=== PATIENT | female | born 1940 | race Caucasian/White ===

== ENCOUNTER 2021-09-01 13:33 | Inpatient (IN) | payer MEDICARE, MEDICAID ==
[~2021-09-01] VITALS: Ht 167.6 cm; Wt 46.7 kg
--- NOTE | 2021-09-01 13:33 | NUR ---
BIB RA FROM HOME, HEARD A SCREAM AND FOUND ON THE FLOOR 1 HR WHITEWASHER "VERY CONFUSED" PER EMT UPON ARRIVAL AND THEN "SNAPPED OUT OF IT". PT WAS A&OX2 UPON INITIAL ASSESSMENT AND THEN A&OX4 MINUTES LATER. PT HAD DIFFICULTY FORMING SENTENCES. STROKE ASSESSMENT WAS INITIATED AND COMPLETE BY DR TAYLOR AT BEDSIDE. IV ESTABLISH R AC 20G AND CONVERTED TO SALINE LOCK. LABS WERE DRAWN AND SENT. VITALS ARE WITHIN NORMAL LIMITS. BREATHING REGULAR AND UNLABORED. PT WAS ATTACHED TO MONITOR.
[2021-09-01 15:08] LABS: BASOPHILS # (AUTO) 0.1 K/uL (0.0-0.2); BASOPHILS % (AUTO) 0.6 % (0.0-2.0); EOSINOPHILS % (AUTO) 0.3 % (0.0-6.0); HEMATOCRIT 42 % (33-45); HEMOGLOBIN 14.3 g/dL (11.5-14.8); LYMPHOCYTES # (AUTO) 0.5 K/uL (0.8-4.8); LYMPHOCYTES % (AUTO) 4.7 % (20.0-44.0); MEAN CORPUSCULAR HGB CONC 34 g/dl (31.0-36.0); MEAN CORPUSCULAR VOLUME 88 fL (82-100); MONOCYTES # (AUTO) 0.4 K/uL (0.1-1.30); MONOCYTES % (AUTO) 3.7 % (2.0-12.0); NEUTROPHILS # (AUTO) 10.5 K/uL (1.8-8.9); NEUTROPHILS % (AUTO) 90.7 % (43.0-81.0); PLATELET COUNT (AUTO) 404 K/uL (150-450); RED BLOOD CELL COUNT(AUTO) 4.76 MIL/uL (4.0-5.2); WHITE BLOOD COUNT (AUTO) 11.5 K/uL (4.3-11.0)
--- NOTE | 2021-09-01 15:09 | NUR ---
X RAY AT BEDSIDE
--- NOTE | 2021-09-01 15:10 | NUR ---
CALLED [facility] [phone]
[2021-09-01] MEDS ORDERED: ASPI-1169 PO (15:21)
[2021-09-01] MEDS ORDERED: ALBU8.5H8 IH (15:21)
[2021-09-01] MEDS ORDERED: TRAZ-182 PO (15:21)
[2021-09-01] MEDS ORDERED: FERR325T27 PO (15:21)
[2021-09-01 15:29] LABS: CALCIUM, SERUM 9.2 mg/dL (8.5-10.1); CARBON DIOXIDE 27 mmol/L (21-32); CHLORIDE 102 mmol/L (98-107); CREATININE 0.9 mg/dL (0.6-1.3); GLUCOSE 215 mg/dL (74-106); POTASSIUM 3.6 mmol/L (3.5-5.1); SODIUM SERUM 136 mmol/L (136-145); UREA NITROGEN, BLOOD 24 mg/dL (7-18)
[2021-09-01 15:38] LABS: ALANINE AMINOTRANSFERASE 24 U/L (12-78); ALBUMIN 3.1 g/dL (3.4-5.0); ALKALINE PHOSPHATASE 110 U/L (46-116); ASPARTATE AMINOTRANSFERASE 24 U/L (15-37); BILIRUBIN,DIRECT 0.1 mg/dL (0.0-0.2); BILIRUBIN,TOTAL 0.6 mg/dL (0.2-1.0); TOTAL PROTEIN, SERUM 7.7 g/dL (6.4-8.2)
--- NOTE | 2021-09-01 15:39 | NUR ---
PT AT BEDSIDE
[2021-09-01] MEDS ORDERED: IV NS 0.9% 500 ML BAG IV ONE (16:30)
[2021-09-01] MEDS ORDERED: ACETAMINOPHEN ES 500 MG TABLET ONE (16:41)
[2021-09-01] MEDS ORDERED: Z GUARD REMEDY 2 OZ OINT TP PRN (17:30)
[2021-09-01] MEDS ORDERED: ACETAMINOPHEN 325 MG TABLET PO PRN (17:30)
[2021-09-01] MEDS ORDERED: MAG HYDROX/AL HYDROX/SIMETH 30 ML UDC PO PRN (17:30)
--- NOTE | 2021-09-01 19:39 | NUR ---
COVID SWAB COLLECTED AND SENT TO LAB
[2021-09-01] MEDS ORDERED: ACETAMINOPHEN 325 MG TABLET ONE (19:43)
--- NOTE | 2021-09-01 20:58 | NUR ---
ROOM GIVEN 328-1
--- NOTE | 2021-09-01 21:51 | NUR ---
REPORT GIVEN TO ANNALEE GARCIA
--- NOTE | 2021-09-01 21:55 | NUR ---
TELE/LIFE SCIENTISTS NOTES RECEIVED PT FROM [place] [facility]IA [employer] TO [id number] ACCOMPANIED BY INFECTION CONTROL NURSE. DX: SYNCOPE. PT REPORTS SHE FELL AT HOME. PT AWAKE, A/OX3 WITH FORGETFULNESS. PT ABLE TO AMBULATE BUT STATES THAT SHE FEELS UNSTEADY. SAFETY INSRUCTIONS REINFORCED AND TO USE CALL LIGHT AT ALL TIMES FOR ANY ASSISTANCE NEEDED. BED ALARM ON. PT VERBALIZED UNDERSTANDING. ON ROOM AIR, O2 SAT 97%. RESPIRATIONS EVEN/UNLABORED. IV SITE: R-AC G20 INTACT/PATENT/FLUSHES WELL. ORIENTED TO ROOM AND STAFF. BELONGINGS RECORDED. PT IN NO ACUTE DISTRESS. SAFETY MEASURES IN PLACE, BED IN LOWEST LOCKED POSITION, S/R UPX2, CALL LIGHT WITHIN REACH. WILL CONT TO MONITOR. Addendum: 09/01/21 at 2338 by TATIANA ADAMS RN CONNECTED TO TELE MONITOR, READING SR, HR 84.
--- NOTE | 2021-09-01 22:02 | NUR ---
PATIENT TRANSFERRED UNER ACLS
[2021-09-01] MEDS: IV NS 0.9% 1,000 ML IV PRN (22:35)
[2021-09-01] MEDS: TRAZODONE 50 MG TABLET PO SCH (22:36)
--- NOTE | 2021-09-01 23:24 | NUR ---
RN NOTE PT C/O PAIN TO L-ARM/L-SHOULDER AND BACK. PT REQUESTS FOR PAIN MED "STRONGER THAN TYLENOL" REPORTS PAIN LEVEL 8/10. ON-CALL MD/FIRE CLAIMS ADJUSTER MELISSA ZAMORA MADE AWARE WITH ORDERS FOR NORCO 1TAB PO Q6HR PRN AND FOR X-RAY OF L-SHOULDER IN AM TO R/O FRACTURE.
[2021-09-01 23:43] VITALS: BP 118/72
[2021-09-01] MEDS: HYDROCODONE/APAP 10/325MG TABLET PO PRN (23:53)
[2021-09-02 00:35] VITALS: BP 128/71
--- NOTE | 2021-09-02 07:05 | NUR ---
TELE/RN NOTE PT RESTING IN BED, EASILY AROUSABLE TO STIMULI. ABLE TO VERBALIZE NEEDS. NO C/O PAIN AT THIS TIME. PT SLEPT WELL DURING THE NIGHT. ONGOING IVF NS @75ML/HR. ZEENAT WELL. TELE MONITOR READING SR, HR 83 WITH OCCASIONAL PACs. NO ACUTE DISTRESS NOTED. SAFETY MEASURES MAINTAINED. ALL NEEDS ATTENDED TO.
[2021-09-02 07:09] LABS: BASOPHILS # (AUTO) 0.1 K/uL (0.0-0.2); BASOPHILS % (AUTO) 1.2 % (0.0-2.0); EOSINOPHILS % (AUTO) 2.4 % (0.0-6.0); HEMATOCRIT 36 % (33-45); HEMOGLOBIN 12.5 g/dL (11.5-14.8); LYMPHOCYTES # (AUTO) 1.5 K/uL (0.8-4.8); LYMPHOCYTES % (AUTO) 20.7 % (20.0-44.0); MEAN CORPUSCULAR HGB CONC 35 g/dl (31.0-36.0); MEAN CORPUSCULAR VOLUME 88 fL (82-100); MONOCYTES # (AUTO) 0.9 K/uL (0.1-1.30); MONOCYTES % (AUTO) 12.4 % (2.0-12.0); NEUTROPHILS # (AUTO) 4.5 K/uL (1.8-8.9); NEUTROPHILS % (AUTO) 63.3 % (43.0-81.0); PLATELET COUNT (AUTO) 329 K/uL (150-450); RED BLOOD CELL COUNT(AUTO) 4.08 MIL/uL (4.0-5.2); WHITE BLOOD COUNT (AUTO) 7.1 K/uL (4.3-11.0)
--- NOTE | 2021-09-02 07:30 | NUR ---
TELE/RN OPENING NOTE PT RESTING IN BED AND AWAKE. ABLE TO VERBALIZE NEEDS. NO C/O PAIN AT THIS TIME. NO SOB NO RESPIRATORY DISTRESS NOTED. SHE HAS ONGOING IVF NS @75ML/HR. TOLERATED WELL. TELE MONITOR READING SR, HR 77 . NO ACUTE DISTRESS NOTED. SAFETY MEASURES MAINTAINED. BED IN THE LOWEST POSITION AND LOCKED. SIDE RAILS UPX2. CALL LIGHT AND TABLE WITHIN REACH.WILL CONTINUE TO MONITOR.
[2021-09-02] MEDS: HYDROCODONE/APAP 10/325MG TABLET PO PRN ×2 (07:34→14:29)
[2021-09-02 07:46] LABS: CALCIUM, SERUM 8.8 mg/dL (8.5-10.1); CREATININE 0.8 mg/dL (0.6-1.3); MAGNESIUM 1.9 mg/dL (1.8-2.4); PHOSPHORUS 2.9 mg/dL (2.5-4.9)
[2021-09-02 08:00] VITALS: BP 91/53
[2021-09-02 12:00] VITALS: BP 95/60
[2021-09-02] MEDS ORDERED: GADOTERATE MEGLUMINE 5 MMOL/10 ML VIAL IV ONE (14:21)
[2021-09-02] MEDS: IV NS 0.9% 1,000 ML IV PRN (14:38)
[2021-09-02 16:00] VITALS: BP 103/57
--- NOTE | 2021-09-02 18:30 | NUR ---
TELE/RN CLOSING NOTE PT RESTING IN BED AND AWAKE. ABLE TO VERBALIZE NEEDS. NO C/O PAIN AT THIS TIME. NO SOB NO RESPIRATORY DISTRESS NOTED. SHE HAS ONGOING IVF NS @75ML/HR. TOLERATED WELL. TELE MONITOR READING SR, HR 78 . NO ACUTE DISTRESS NOTED. SAFETY MEASURES MAINTAINED. BED IN THE LOWEST POSITION AND LOCKED. SIDE RAILS UPX2. CALL LIGHT AND TABLE WITHIN REACH.WILL ENDORSE INCOMING SHIFT NURSE FOR SURY.
[2021-09-02 20:00] VITALS: BP 100/54
--- NOTE | 2021-09-02 20:00 | NUR ---
STONE TRIMMER NOTES RECEIVED ON BED,A/O X3,FORGETFUL,FALL RISK,SALINE LOCK RIGHT AC INTACT AND PATENT,NO BP ON LEFT ARM,HX LEFT BREAST CA.CALL LIGHT IN REACH,NEEDS ANTICIPATED.
[2021-09-02] MEDS: TRAZODONE 50 MG TABLET PO SCH (21:16)
[2021-09-03 01:03] VITALS: BP 100/54
[2021-09-03 04:00] VITALS: BP_SYST 103; BP_SYST 105; BP_DIAS 52; BP_DIAS 53
[2021-09-03 07:07] LABS: CANCER AG, 15-3 10.4 U/mL (0.0-25.0)
--- NOTE | 2021-09-03 07:23 | NUR ---
ELEMENTARY READING SPECIALIST NOTES SB-56 ON TELE MONITOR,ALERT,ORIENTED X4,GOING FOR MRI TSPINE WITH CONTRAST BY DR COSME,CONSENT SIGNED.ENDORSED TO URIEL MANTILLA FOR SURY.
--- NOTE | 2021-09-03 07:30 | NUR ---
TELE/RN OPENING NOTE PT RESTING IN BED AND AWAKE. ABLE TO VERBALIZE NEEDS. NO C/O PAIN AT THIS TIME. NO SOB NO RESPIRATORY DISTRESS NOTED. IV ACCESS ON THE RIGHT AC #20 INTACT.SHE HAS ONGOING IVF NS @75ML/HR. TOLERATED WELL. TELE MONITOR READING SR, HR 63 . NO ACUTE DISTRESS NOTED. SAFETY MEASURES MAINTAINED. BED IN THE LOWEST POSITION AND LOCKED. SIDE RAILS UPX2. CALL LIGHT AND TABLE WITHIN REACH.WILL CONTINUE TO MONITOR.
[2021-09-03] MEDS ORDERED: IV NS 0.9% 250 ML IV ONE (08:08)
[2021-09-03] MEDS ORDERED: IOHEXOL-300 100 ML VIAL IV ONE (08:08)
[2021-09-03 08:16] VITALS: BP 118/67
[2021-09-03 11:50] VITALS: BP 122/69
[2021-09-03] MEDS: HYDROCODONE/APAP 10/325MG TABLET PO PRN ×2 (14:17→21:38)
[2021-09-03] MEDS: IV NS 0.9% 1,000 ML IV PRN (14:41)
[2021-09-03 16:30] VITALS: BP 137/83
--- NOTE | 2021-09-03 19:00 | NUR ---
TELE/RN CLOSING NOTE PT RESTING IN BED AND AWAKE. ABLE TO VERBALIZE NEEDS. NO C/O PAIN AT THIS TIME. NO SOB NO RESPIRATORY DISTRESS NOTED. IV ACCESS ON THE RIGHT AC #20 INTACT.SHE HAS ONGOING IVF NS @75ML/HR. TOLERATED WELL. TELE MONITOR . NO ACUTE DISTRESS NOTED. SAFETY MEASURES MAINTAINED. BED IN THE LOWEST POSITION AND LOCKED. SIDE RAILS UPX2. CALL LIGHT AND TABLE WITHIN REACH.WILL ENDORSE FOR SURY TO THE INCOMING SHIFT.
[2021-09-03] MEDS ORDERED: GADOTERATE MEGLUMINE 5 MMOL/10 ML VIAL IV ONE (19:06)
--- NOTE | 2021-09-03 19:30 | NUR ---
WEIGHT YARDAGE CHECKER OPENING NOTE RECEIVED PT AWAKE IN BED. A/O X3. ABLE TO VERBALIZE NEEDS. NO SOB OR S/S OF RESPIRATORY DISTRESS NOTED. IV ACCESS ON THE RIGHT AC #20 INFILTRATED. HELD IVF AND WILL REPLACE WITH NEW SALINE LOCK. ON EXTERNAL ACCOUNTS RECEIVABLE COLLECTOR READING SR, HR 63. SAFETY MEASURES MAINTAINED. BED IN LOWEST LOCKED POSITION, HOB ELEVATED, SIDE RAILS UPX2, CALL LIGHT AND TABLE WITHIN REACH. WILL CONTINUE TO MONITOR.
[2021-09-03 20:00] VITALS: BP 117/72
[2021-09-03] MEDS: TRAZODONE 50 MG TABLET PO SCH ×2 (21:26→21:35)
--- NOTE | 2021-09-03 21:38 | NUR ---
RN NOTE PT COMPLAINED OF 8/10 ACHING PAIN OF LEFT SHOULDER. ADMINISTERED NORCO 10-325 MG PRN FOR PAIN. VSS. WILL CONTINUE TO MONITOR.
[2021-09-04] VITALS: BP_SYST 132; BP_DIAS 75; BP_DIAS 88
[2021-09-04 04:00] VITALS: BP 135/67
[2021-09-04] MEDS: HYDROCODONE/APAP 10/325MG TABLET PO PRN ×2 (06:30→15:07)
--- NOTE | 2021-09-04 06:30 | NUR ---
RN NOTE PT COMPLAINED OF 7/10 ACHING PAIN OF LEFT SHOULDER. ADMINISTERED NORCO 10-325 MG PRN FOR PAIN. VSS. WILL CONTINUE TO MONITOR.
--- NOTE | 2021-09-04 06:37 | NUR ---
NETWORK CONTROL OPERATOR CLOSING NOTE PT AWAKE IN BED. A/O X3. ABLE TO VERBALIZE NEEDS. NO SOB OR S/S OF RESPIRATORY DISTRESS NOTED. IV ACCESS ON THE RIGHT FOREARM #22 RUNNING NS @ 75 ML/HR, INTACT AND PATENT. ON EXTERNAL SEAM SEWER READING SR, HR 76. ALL NEEDS MET AT THIS TIME. SAFETY MEASURES MAINTAINED AT ALL TIMES. BED IN LOWEST LOCKED POSITION, HOB ELEVATED, SIDE RAILS UPX2, CALL LIGHT AND TABLE WITHIN REACH. WILL ENDORSE TO ONCOMING NURSE FOR SURY.
[2021-09-04 07:34] LABS: BASOPHILS # (AUTO) 0.1 K/uL (0.0-0.2); BASOPHILS % (AUTO) 0.7 % (0.0-2.0); EOSINOPHILS % (AUTO) 3.4 % (0.0-6.0); HEMATOCRIT 39 % (33-45); HEMOGLOBIN 13.3 g/dL (11.5-14.8); LYMPHOCYTES # (AUTO) 1.5 K/uL (0.8-4.8); LYMPHOCYTES % (AUTO) 19.7 % (20.0-44.0); MEAN CORPUSCULAR HGB CONC 34 g/dl (31.0-36.0); MEAN CORPUSCULAR VOLUME 88 fL (82-100); MONOCYTES # (AUTO) 0.8 K/uL (0.1-1.30); MONOCYTES % (AUTO) 9.9 % (2.0-12.0); NEUTROPHILS # (AUTO) 5.1 K/uL (1.8-8.9); NEUTROPHILS % (AUTO) 66.3 % (43.0-81.0); PLATELET COUNT (AUTO) 322 K/uL (150-450); RED BLOOD CELL COUNT(AUTO) 4.41 MIL/uL (4.0-5.2); WHITE BLOOD COUNT (AUTO) 7.6 K/uL (4.3-11.0)
[2021-09-04 07:51] LABS: CALCIUM, SERUM 8.3 mg/dL (8.5-10.1); CREATININE 0.6 mg/dL (0.6-1.3); MAGNESIUM 1.8 mg/dL (1.8-2.4); POTASSIUM 3.7 mmol/L (3.5-5.1)
[2021-09-04 08:11] VITALS: BP 114/70
--- NOTE | 2021-09-04 08:45 | NUR ---
tele fine craft artist: pulmo f/u dr. elizabeth at bedside and scheduled pt for Bronchoscopy on tuesday and npo tuesday at 0600. orders carried out and acknowledged. pt verbalized understanding. will continue to monitor.
[2021-09-04] MEDS: LEVETIRACETAM (250 MG) 250 MG TABLET PO SCH ×2 (08:53→22:33)
--- NOTE | 2021-09-04 09:10 | NUR ---
tele telescope operator: notes consent obtained for Bronchoscopy from pt. pt verbalized understanding. will continue to monitor.
--- NOTE | 2021-09-04 09:15 | NUR ---
tele farm reporter: pulmo dr. elizabeth came back and explained to the pt re: ct guided core biopsy of left upper lobe mass on tuesday. consent signed by pt and verbalized understanding. dr. elizabeth says that he already spoken to the radiology department to do the ct guided core biopsy of left upper lobe mass on tuesday.
--- NOTE | 2021-09-04 12:00 | NUR ---
tele service counter cashier: notes having lunch, visitor at bedside. will continue to monitor.
[2021-09-04 12:05] VITALS: BP 107/71
--- NOTE | 2021-09-04 15:00 | NUR ---
tele it quality analyst: notes resting comfortable in bed with no distress noted. call light within reach.
[2021-09-04 16:17] VITALS: BP 111/66
--- NOTE | 2021-09-04 19:15 | NUR ---
tele practical nurse clinical coordinator: notes bedside report given to osiel (jace) for continuity of care.
--- NOTE | 2021-09-04 19:25 | NUR ---
FUR STRETCHER OPENING NOTE PATIENT RECEIVED AWAKE IN HER BED. A/OX4. PATIENT IS VERY PLEASANT. NO S/S OF DISTRESS, BREATHING SYMMETRICAL. IV RFA 22G. SAFETY MEASURES INPLACE: BED DOWN AT LOWEST POSITION, RAILS UP X2, CALL VASQUEZ WITHIN REACH. WILL CONTINUE TO MONITOR PATIENT.
[2021-09-04 20:00] VITALS: BP 115/71
[2021-09-04] MEDS: ONDANSETRON HCL/PF 4 MG/2 ML VIAL IVP PRN (21:41)
[2021-09-04] MEDS: TRAZODONE 50 MG TABLET PO SCH (22:00)
--- NOTE | 2021-09-04 22:34 | NUR ---
REHABILITATION ENGINEER NOTE PATIENT WAS OBSERVED SITTING UP IN HER BED VOMITING LIQUID. LIQUID WAS YELLOW (BILE). MINIMAL EMESIS. THIS WAS DURING THE DUE TIME OF HER EVENING KEPRA. I HELD THE KEPRA THE PATIENT WOULD HAVE JUST VOMITED THE PILLS RIGHT AFTERWARD. PATIENT'S MED ORDER ALLOWS FOR ZOFRAN. ZOFRAN WAS ADMINISTERED AND F/U TO REASSESS. PATIENT STATED SHE FELT BETTER AND STATED SHE FELT ABLE TO CONSUME LIQUIDS AND THE EVENING DOSE OF KEPRA WHICH WAS SUBSEQUENTLY ADMINISTERED. FOLLOWING PATIENT'S EMETIC EPISODE I ASSESSED HER. SHE REMAINED A/OX4. I STAYED AT BEDSIDE WITH THE PATIENT HAVING GIVEN HER A SHAFFER TUB FOR THE EMESIS AT THE TIME. UPON REASSESSMENT ADDITIONAL ITEMS WERE GIVEN TO HER WELL LETTING HER KNOW THAT FLUIDS WOULD BE PROVIDED PER HER REQUEST. SHE IS CURRENTLY ON IVF.
[2021-09-05] VITALS: BP 116/76
[2021-09-05] MEDS: HYDROCODONE/APAP 10/325MG TABLET PO PRN ×3 (02:24→22:47)
[2021-09-05 04:00] VITALS: BP 114/64
--- NOTE | 2021-09-05 06:37 | NUR ---
TELE CLOSING NOTE PATIENT IS AWAKE IN BED. A/OX4. NO S/S OF DISTRESS, BREATHING UNLABORED. ATHLETIC COACH REPORTS SR 73 AT PRESENT. SAFETY MEASURES IN PLACE: BED AT LOWEST POSITION, RAILS UP X2, CALL VASQUEZ WITHIN REACH. WILL ENDORSE TO THE NEXT SHIFT FOR SURY.
--- NOTE | 2021-09-05 06:44 | NUR ---
FOOD SERVICE DRIVER NOTE NOTIFIED DR. ZAMORA REGARDING PATIENT'S VTE SCORE OF 5 AND HAVING NO CHEMICAL PROPHYLAXIS. PATIENT IS ABLE TO AMBULATE AND MD WAS INFORMED WELL INFORMED OF MOST RECENT LABS. PER MD, NO CHEM PROPHYLAXIS TO BE ORDERED AT THIS TIME.
[2021-09-05 08:00] VITALS: BP 138/74
--- NOTE | 2021-09-05 08:01 | NUR ---
RN OPENING NOTES PATIENT IS IN BED RESTING, AWAKE. A/O X4. NO S/S OF PAIN NOTES AT THIS TIME. ON ROOM AIR, NO DISTRESS OR SHORTNESS OF BREATH NOTES. IV RFA #22G INTACT AND PATENT. PATIENT HAS A EXTERNAL ACCOUNTING SOFTWARE SPECIALIST WITH CURRENT READING OF S.R. AND HR OF 73. FALL AND SAFETY MEASURES IN PLACE, BED ALARM ON, BED IN LOW AND LOCK POSITION, CALL LIGHT AND TABLE WITHIN EASY REACH, SIDE RAILS UP X2. WILL CONTINUE TO MONITOR.
[2021-09-05] MEDS: LEVETIRACETAM (250 MG) 250 MG TABLET PO SCH ×2 (09:03→21:40)
[2021-09-05 12:00] VITALS: BP 121/74
[2021-09-05] MEDS: ONDANSETRON HCL/PF 4 MG/2 ML VIAL IVP PRN (13:03)
[2021-09-05 16:00] VITALS: BP 118/71
--- NOTE | 2021-09-05 19:05 | NUR ---
RN NOTES: -RECEIVED AWAKE ON BED, FAMILY MEMBER PRESENT AT BED SIDE, PATIENT IS A/OX4, ORIENTED TO UNIT AND STAFF, CONTINENT BOTH B/B, AMBULATORY, IV CANNULA ON THE RFA G#22 PATENT, NO COMPLAINTS OF N/V, NO PAIN OR DISCOMFORT UPON CHANGE OF SHIFT. -FALL SAFETY AND ASPIRATION PRECAUTION OBSERVED.
--- NOTE | 2021-09-05 19:27 | NUR ---
RN CLOSING NOTES PATIENT IS IN BED RESTING, AWAKE. A/O X4. NO S/S OF PAIN NOTES AT THIS TIME. ON ROOM AIR, NO DISTRESS OR SHORTNESS OF BREATH NOTES. IV RFA #22G INTACT AND PATENT. PATIENT HAS A EXTERNAL HRIS SPECIALIST WITH CURRENT READING OF S.R. AND HR OF 70. FALL AND SAFETY MEASURES IN PLACE, BED ALARM ON, BED IN LOW AND LOCK POSITION, CALL LIGHT AND TABLE WITHIN EASY REACH, SIDE RAILS UP X2. WILL ENDORSE TO WELDER PLASMA ARC..
[2021-09-05 20:00] VITALS: BP 110/73
[2021-09-05] MEDS: TRAZODONE 50 MG TABLET PO SCH (21:41)
[2021-09-05] MEDS: MAGNESIUM HYDROXIDE 30 ML UDC PO PRN (22:11)
--- NOTE | 2021-09-05 22:29 | NUR ---
RN NOTES: AT 2200 AFTER RECEIVING HERDUE MEDS, SHE ASKED SOMETHING FOR BOWEL MOVEMENT, SHE VERBALIZED SHE DID NOT HAD BM FOR MORE THAN 2 DAYS, MOM PRN GIVEN PER PATIENT REQUEST.
--- NOTE | 2021-09-05 22:47 | NUR ---
RN NOTES: -ASKING FOR HER PAIN MEDICATION AFTER SHE WENT TO THE BATHROOM, SHE SAID SHE IS IN PAIN 10/10, SHE WANTS HER NORCO, GIVEN PER PATIENT REQUEST, NON PHARMACOLOGIC INTERVENTION RENDERED.KEPT CALL LIGHT WITHIN EASY EACH
[2021-09-06] VITALS: BP 120/69
--- NOTE | 2021-09-06 02:48 | NUR ---
RN NOTES: ABLE TO SLEEP AND REST, KEPT CALL LIGHT WITH IN EASY REACH.
--- NOTE | 2021-09-06 06:43 | NUR ---
RN NOTES: ASLEEP, ABLE TO SLEEP WELL, NEEDS ATTENDED, FOR LABS THIS MORNING,ENDORSED FOR CONTINUITY OF CARE, FOR CT GUIDED NEEDLE BIOPSY OF LEFT UPPER LOBE ON 09/07/21 AT 0800.
--- NOTE | 2021-09-06 07:30 | NUR ---
MS RN OPENING NOTES RECEIVED PATIENT IN BED RESTING, AWAKE. A/O X4. NO S/S OF PAIN NOTED AT THIS TIME. ON ROOM AIR TOLERATING WELL, NO DISTRESS OR SHORTNESS OF BREATH NOTES. IV RFA #22G INTACT AND PATENT. FALL AND SAFETY MEASURES IN PLACE, BED ALARM ON, BED IN LOW AND LOCKED POSITION, CALL LIGHT AND TABLE WITHIN EASY REACH, SIDE RAILS UP X2. WILL CONTINUE TO MONITOR ACCORDINGLY.
[2021-09-06 08:00] VITALS: BP 121/77
[2021-09-06] MEDS: HYDROCODONE/APAP 10/325MG TABLET PO PRN ×3 (08:08→23:25)
[2021-09-06] MEDS: LEVETIRACETAM (250 MG) 250 MG TABLET PO SCH ×2 (08:55→20:54)
[2021-09-06 09:00] VITALS: BP 121/77
[2021-09-06 16:00] VITALS: BP 106/66
[2021-09-06] MEDS: ONDANSETRON HCL/PF 4 MG/2 ML VIAL IVP PRN (17:29)
--- NOTE | 2021-09-06 18:44 | NUR ---
MS RN CLOSING NOTES PATIENT IN BED RESTING, AWAKE. A/O X4. NO S/S OF PAIN NOTED AT THIS TIME. ON ROOM AIR TOLERATING WELL, NO DISTRESS OR SHORTNESS OF BREATH NOTES. IV RFA #22G INTACT AND PATENT. NPO POST MIDNIGHT INSTRUCTED. FALL AND SAFETY MEASURES IN PLACE, BED ALARM ON, BED IN LOW AND LOCKED POSITION, CALL LIGHT AND TABLE WITHIN EASY REACH, SIDE RAILS UP X2. DUE MEDS GIVEN ORDERED, ALL NEEDS ATTENDED AND MET. WILL ENDORSED TO ONCOMING SHIFT FOR SURY.
--- NOTE | 2021-09-06 19:30 | NUR ---
MS RN OPENING NOTES RECEIVED PATIENT AWAKE IN BED. A/O X4. NO S/S OF PAIN NOTED AT THIS TIME. PT STABLE ON ROOM AIR. NO SOB OR S/S OF RESPIRATORY DISTRESS. IV ACCESS RFA #22G INTACT AND PATENT. SAFETY PRECAUTIONS IN PLACE. BED IN LOWEST LOCKED POSITION, HOB ELEVATED, SIDE RAILS UP X2, AND CALL LIGHT AND TABLE WITHIN REACH. WILL CONTINUE TO MONITOR.
[2021-09-06 20:49] VITALS: BP_SYST 117; BP_SYST 97; BP_SYST 99; BP_DIAS 64; BP_DIAS 70
[2021-09-06 20:54] VITALS: BP 117/64
[2021-09-06] MEDS: MAGNESIUM HYDROXIDE 30 ML UDC PO PRN (20:54)
--- NOTE | 2021-09-06 20:54 | NUR ---
RN NOTE MILK OF MAGNESIA GIVEN PRN FOR CONSTIPATION PER PATIENT REQUEST. VSS. WILL CONTINUE TO MONITOR.
[2021-09-06] MEDS: TRAZODONE 50 MG TABLET PO SCH (22:00)
--- NOTE | 2021-09-06 22:06 | NUR ---
RN NOTE PT REFUSED SCHEDULED TRAZODONE AT 2200. EXPLAINED RISKS AND BENEFITS. PT STILL REFUSED. WILL CONTINUE TO MONITOR.
--- NOTE | 2021-09-06 23:25 | NUR ---
RN NOTE PT COMPLAINED OF 8/10 ACHING PAIN OF LEFT SHOULDER. ADMINISTERED NORCO 10-325 MG PRN FOR PAIN. VSS. WILL CONTINUE TO MONITOR.
--- NOTE | 2021-09-07 06:24 | NUR ---
MS RN CLOSING NOTES PATIENT AWAKE IN BED. A/O X4. NO S/S OF PAIN NOTED AT THIS TIME. PT STABLE ON ROOM AIR. NO SOB OR S/S OF RESPIRATORY DISTRESS. IV ACCESS RFA #22G INTACT AND PATENT. KEPT NPO AFTER MIDNIGHT FOR PROCEDURE TODAY. ALL NEEDS MET AT THIS TIME. SAFETY PRECAUTIONS IN PLACE AT ALL TIMES. BED IN LOWEST LOCKED POSITION, HOB ELEVATED, SIDE RAILS UP X2, AND CALL LIGHT AND TABLE WITHIN REACH. WILL ENDORSE TO ONCOMING NURSE FOR SURY.
[2021-09-07 07:03] LABS: CALCIUM, SERUM 8.8 mg/dL (8.5-10.1); CREATININE 0.8 mg/dL (0.6-1.3); POTASSIUM 4.7 mmol/L (3.5-5.1)
[2021-09-07 07:04] LABS: BASOPHILS # (AUTO) 0.1 K/uL (0.0-0.2); BASOPHILS % (AUTO) 0.8 % (0.0-2.0); EOSINOPHILS % (AUTO) 2.5 % (0.0-6.0); HEMATOCRIT 41 % (33-45); HEMOGLOBIN 14.2 g/dL (11.5-14.8); LYMPHOCYTES % (AUTO) 22.2 % (20.0-44.0); MEAN CORPUSCULAR HGB CONC 35 g/dl (31.0-36.0); MEAN CORPUSCULAR VOLUME 87 fL (82-100); MONOCYTES # (AUTO) 0.8 K/uL (0.1-1.30); MONOCYTES % (AUTO) 8.8 % (2.0-12.0); NEUTROPHILS # (AUTO) 5.8 K/uL (1.8-8.9); NEUTROPHILS % (AUTO) 65.7 % (43.0-81.0); PLATELET COUNT (AUTO) 418 K/uL (150-450); RED BLOOD CELL COUNT(AUTO) 4.66 MIL/uL (4.0-5.2); WHITE BLOOD COUNT (AUTO) 8.9 K/uL (4.3-11.0)
[2021-09-07 08:00] VITALS: BP 111/65
[2021-09-07] MEDS: LEVETIRACETAM (250 MG) 250 MG TABLET PO SCH ×2 (08:05→21:31)
--- NOTE | 2021-09-07 10:16 | NUR ---
MS RN OPENING NOTES PATIENT RECEIVED IN BED, AWAKEN, A/O X4, ABLE TO MAKE NEED KNOWN. PATIENT ON ROOM AIR; BREATHING EVEN AND UNLABORED, NO SOB NOTED AT THIS TIME. NO COMPLAINS OF PAIN. IV ACCESS AT RFA G #22 PRESENT AND INTACT. SAFETY PRECAUTIONS IN PLACE; BED IN LOW POSITION AND LOCKED, RAILS UP X2, CALL LIGHT WITHIN REACH. WILL CONTINUE TO MONITOR PATIENT.
--- NOTE | 2021-09-07 10:22 | NUR ---
WOUND CARE CONSULT: PT SEEN FOR BLANCHABLE REDNESS TO SACRUM. PT IS VERY THIN AND BONY. RECOMMENDATIONS MADE FOR SKIN PROTECTION. DISCUSSED WITH NURSING STAFF. IN AGREEMENT WITH PLAN OF CARE. Addendum: 09/07/21 at 1025 by SORIN RÍSO WNDNU PT NOTED TO HAVE LYMPHEDEMA OF LEFT UPPER EXTREMITY, PRESENT ON ADMISSION.
[2021-09-07] MEDS ORDERED: MIDAZOLAM HCL 5MG/ML VIAL 25 MG/5 ML VIAL IV ONE (13:00)
[2021-09-07] MEDS ORDERED: NALOXONE PREFILLED SYRINGE 2 MG/2 ML SYRINGE IV ONE (13:00)
[2021-09-07] MEDS ORDERED: FENTANYL PF 250MCG/5ML AMPUL IV ONE (13:00)
[2021-09-07] MEDS: HYDROCODONE/APAP 10/325MG TABLET PO PRN (15:01)
--- NOTE | 2021-09-07 15:01 | NUR ---
MS RN NOTES PATIENT BACK FROM BIOPSY. PER DR GIOVANNA LOU TO RESUME DIET.
[2021-09-07] MEDS ORDERED: LOPERAMIDE HCL (2 MG CAP) 2 MG CAPSULE PO ONE (15:30)
--- NOTE | 2021-09-07 18:49 | NUR ---
MS RN CLOSING NOTES PATIENT REMAINS IN BED, AWAKEN, A/O X4, ABLE TO MAKE NEED KNOWN. PATIENT ON ROOM AIR; BREATHING EVEN AND UNLABORED, NO SOB NOTED AT THIS TIME. NO COMPLAINS OF PAIN AT THE MOMENT. IV ACCESS AT RFA G #22 PRESENT AND INTACT; SL. ALL NEEDS ATTENDED DURING THE DAY. SAFETY PRECAUTIONS IN PLACE; BED IN LOW POSITION AND LOCKED, RAILS UP X2, CALL LIGHT WITHIN REACH. WILL ENDORSE TO LAWYER NURSE FOR SURY.
[2021-09-07 20:00] VITALS: BP 106/67
[2021-09-07] MEDS: TRAZODONE 50 MG TABLET PO SCH (22:00)
[2021-09-08] MEDS: HYDROCODONE/APAP 10/325MG TABLET PO PRN ×2 (01:22→08:31)
[2021-09-08 08:00] VITALS: BP 111/72
--- NOTE | 2021-09-08 08:02 | NUR ---
MS RN OPENING NOTES PATIENT IN BED, AWAKE, A/O X4, ABLE TO MAKE NEED KNOWN. PATIENT ON ROOM AIR; BREATHING EVEN AND UNLABORED, NO SOB NOTED AT THIS TIME. COMPLAINING OF PAIN. IV ACCESS AT RFA G #22 PRESENT AND INTACT; SL. SAFETY PRECAUTIONS IN PLACE; BED IN LOW POSITION AND LOCKED, RAILS UP X2, CALL LIGHT WITHIN REACH. WILL CONTINUE TO MONITOR PATIENT.
[2021-09-08] MEDS: LEVETIRACETAM (250 MG) 250 MG TABLET PO SCH (08:31)
[2021-09-08] MEDS ORDERED: LEVE500T9 PO (08:36)
[2021-09-08] MEDS ORDERED: HYDR-3980 PO (08:41)
[2021-09-08] MEDS ORDERED: LOPERAMIDE HCL (2 MG CAP) 2 MG CAPSULE PO PRN (10:00)
--- NOTE | 2021-09-08 12:24 | NUR ---
MS UTILIZATION REVIEW RN NOTES PATIENT DISCHARGED HOME IN MEDICALLY STABLE CONDITION. PATIENT A/O X4 ABLE TO MAKE NEEDS KNOWN. ALL DISCHARGE PAPERWORK DONE AND TEACHING PROVIDED REGARDING PHYSICIAN INSTRUCTIONS, MED PRESCRIPTION AND FOLLOW UP APPOINTMENTS; PATIENT VERBALIZED UNDERSTANDING. BELONGINGS ACCOUNTED FOR AND FORM SIGNED. PROVIDED PATIENT WITH CD. PHOTO TAKE. IV ACCESS REMOVED PRIOR TO PATIENT LEAVING THE FLOOR. ID BAND REMOVED WELL. PATIENT LEFT THE UNIT VIA WHEELCHAIR ACCOMPANIED BY HER AND RN AT 1215. LEFT THE HOSPITAL VIA PRIVATE CAR.
== END 2021-09-08 12:15 | disposition home or self-care (01) | DRG 180 ==
LOC: ER 13:36 → TRANSITION 18:10 → TELE 20:57 → MED 09-05 11:32
PROVIDERS: ADMIT Internal Medicine; ATTEND Family Medicine
PROC: 0BDG4ZX Extraction of Left Upper Lung Lobe, Percutaneous Endoscopic Approach, Diagnostic (ICD-10-PCS; principal; 2021-09-07)
DX: C34.12 Malignant neoplasm of upper lobe, left bronchus or lung (principal); E43 Unspecified severe protein-calorie malnutrition; N17.0 Acute kidney failure with tubular necrosis; N13.30 Unspecified hydronephrosis; Z68.1 Body mass index [BMI] 19.9 or less, adult; C79.51 Secondary malignant neoplasm of bone; M84.58XA Pathological fracture in neoplastic disease, other specified site, initial encounter for fracture; R56.9 Unspecified convulsions; Z79.82 Long term (current) use of aspirin; E86.0 Dehydration; J44.9 Chronic obstructive pulmonary disease, unspecified; Z85.3 Personal history of malignant neoplasm of breast; G89.29 Other chronic pain; Z92.21 Personal history of antineoplastic chemotherapy; Z92.3 Personal history of irradiation; Z20.822 Contact with and (suspected) exposure to COVID-19; R55 Syncope and collapse; M25.512 Pain in left shoulder; E88.09 Other disorders of plasma-protein metabolism, not elsewhere classified; Z71.6 Tobacco abuse counseling; G47.00 Insomnia, unspecified; F17.210 Nicotine dependence, cigarettes, uncomplicated
CPT/HCPCS: 36415; 70450-TC; 70553-TC; 71045-TC; 71250-TC; 71260-TC; 72157-TC; 73030-TC; 76942-TC; 80048-TC; 80076-TC; 82105; 82378; 82550-TC; 83615-TC; 83735-TC; 84100-TC; 84484-TC; 85025-TC; 85610-TC; 85730-TC; 86300; 87081-TC; 88305-TC; 88333-TC; 88341; 88342; 93307-TC; A9575; G0378; J2250; J2310; J2405; J3010; J7030; J7040; J7050; Q9967

== ENCOUNTER 2021-10-20 11:14 | Outpatient (CLI) | payer MEDICARE, MEDICAID ==
[~2021-10-20 11:14] MED LIST: ALBU8.5H8 IH; ASPI-1169 PO; FERR325T27 PO; HYDR-3980 PO; LEVE500T9 PO; TRAZ-182 PO
== END 2021-10-20 23:59 | disposition home or self-care (01) ==
LOC: ER 11:14
PROVIDERS: ATTEND Internal Medicine Hematology & Oncology
DX: Z45.2 Encounter for adjustment and management of vascular access device (principal); C34.12 Malignant neoplasm of upper lobe, left bronchus or lung

== ENCOUNTER 2021-12-11 12:03 | Inpatient (IN) | payer MEDICARE, BC ==
[~2021-12-11] VITALS: Ht 167.6 cm; Wt 48.5 kg
--- NOTE | 2021-12-11 12:17 | NUR ---
[id number] FR[facility] HOME, WITNESSED SEIZURE LIKE ACTIVITY BY . BG 146 PAINT FORMULATOR. THE PATIENT IS ALERT AND ORIENTED SO SELF. DENIES PAIN. IN ROOM AIR AND DENIES SOB. RESPIRATION REGULAR AND UNLABORED. THE PATIENT IS ATTACHED TO THE MONITOR. SIDE RAILS PADED. SEIZURE PRECAUTIONS TAKEN. WILL CONTINUE TO MONITOR THE PATIENT.
--- NOTE | 2021-12-11 12:19 | NUR ---
DR SUNSHINE AT THE BEDSIDE
[2021-12-11] MEDS ORDERED: LEVETIRACETAM (500MG) 500 MG in IV NS 0.9% 100 ML IV ONE ×2 (13:00→16:30)
[2021-12-11] MEDS ORDERED: IV NS 0.9% 500 ML BAG IV ONE (13:00)
[2021-12-11] MEDS ORDERED: LORAZEPAM INJ 2 MG/ML VIAL ONE (13:02)
[2021-12-11 13:10] LABS: BASOPHILS # (AUTO) 0.1 K/uL (0.0-0.2); BASOPHILS % (AUTO) 0.3 % (0.0-2.0); EOSINOPHILS % (AUTO) 0.4 % (0.0-6.0); HEMATOCRIT 31 % (33-45); HEMOGLOBIN 10.3 g/dL (11.5-14.8); LYMPHOCYTES # (AUTO) 0.5 K/uL (0.8-4.8); LYMPHOCYTES % (AUTO) 2.9 % (20.0-44.0); MEAN CORPUSCULAR HGB CONC 33 g/dl (31.0-36.0); MEAN CORPUSCULAR VOLUME 89 fL (82-100); MONOCYTES # (AUTO) 0.3 K/uL (0.1-1.30); MONOCYTES % (AUTO) 1.7 % (2.0-12.0); NEUTROPHILS # (AUTO) 17.5 K/uL (1.8-8.9); NEUTROPHILS % (AUTO) 94.7 % (43.0-81.0); PLATELET COUNT (AUTO) 422 K/uL (150-450); WHITE BLOOD COUNT (AUTO) 18.5 K/uL (4.3-11.0)
[2021-12-11] MEDS ORDERED: LORAZEPAM INJ 2 MG/ML VIAL IV ONE (13:30)
--- NOTE | 2021-12-11 13:41 | NUR ---
THE PATIENT IS TAKEN TO CT VIA [facility]
--- NOTE | 2021-12-11 13:41 | NUR ---
URINE COLLECTED AND SENT TO THE LAB
--- NOTE | 2021-12-11 13:52 | NUR ---
THE PATIENT IS BACK FROM CT VIA [facility]
--- NOTE | 2021-12-11 13:53 | NUR ---
COVID ANTIGEN SWAB DONE AND SENT TO THE LAB
[2021-12-11 13:56] LABS: ALANINE AMINOTRANSFERASE 17 U/L (12-78); ALBUMIN 2.5 g/dL (3.4-5.0); ALCOHOL, BLOOD < 3 mg/dL (0-0); ALKALINE PHOSPHATASE 98 U/L (46-116); ASPARTATE AMINOTRANSFERASE 17 U/L (15-37); BILIRUBIN,DIRECT 0.1 mg/dL (0.0-0.2); BILIRUBIN,TOTAL 0.5 mg/dL (0.2-1.0); CALCIUM, SERUM 7.6 mg/dL (8.5-10.1); CARBON DIOXIDE 27 mmol/L (21-32); CHLORIDE 102 mmol/L (98-107); CREATININE 0.7 mg/dL (0.6-1.3); GLUCOSE 121 mg/dL (74-106); POTASSIUM 4.4 mmol/L (3.5-5.1); SODIUM SERUM 137 mmol/L (136-145); TOTAL PROTEIN, SERUM 5.9 g/dL (6.4-8.2); UREA NITROGEN, BLOOD 16 mg/dL (7-18)
[2021-12-11] MEDS ORDERED: HYDROCODONE/APAP 10/325MG TABLET PO PRN (15:30)
[2021-12-11] MEDS ORDERED: ALBUTEROL SULFATE 8 GM HFA.AER.AD IH PRN (15:30)
--- NOTE | 2021-12-11 15:44 | NUR ---
CALLED NURSING SUP REGARDING PT BED
--- NOTE | 2021-12-11 15:57 | NUR ---
ROOM 109
--- NOTE | 2021-12-11 16:20 | NUR ---
THE PATIENT IS SEEN BY DR COSME WITH AN ORDER TO DISCONTINUE KEPPRA 500 MG Q12HR PO. START NEW ORDER OF KEPPRA 500 MG IV ONCE AT 1630 AND KEPPRA 1000 MG Q12HR FIRST DOSE TO BE GIVEN TODAY AT 2100. THE ORDERS ARE READ BACK, VERIFIED. NOTED AND CARRIED OUT.
--- NOTE | 2021-12-11 16:31 | NUR ---
REPORT GIVEN TO NURSE BRAVO FOR SURY
--- NOTE | 2021-12-11 16:49 | NUR ---
WAITING FOR PHARMACY TO DELIVER KEPPRA DUE 1630. FOLLOW UP CALL TO PHARMACY IS DONE.
[2021-12-11] MEDS ORDERED: AZITHROMYCIN 500 MG in IV D5W 250 ML IV ONE (17:00)
[2021-12-11] MEDS ORDERED: CEFTRIAXONE 1 G in IV D5W 50 ML IV ONE (17:00)
--- NOTE | 2021-12-11 17:28 | NUR ---
THE PATIENT IS TRANSFERED [facility] ROOM 117-2 IN STABLE CONDITION AND VIA ACLS POLICY.
[2021-12-11] MEDS ORDERED: ONDANSETRON HCL/PF 4 MG/2 ML VIAL IVP PRN (18:00)
[2021-12-11] MEDS ORDERED: LORAZEPAM INJ 2 MG/ML VIAL IV PRN (18:00)
[2021-12-11] MEDS ORDERED: ACETAMINOPHEN 325 MG TABLET PO PRN (18:00)
[2021-12-11] MEDS ORDERED: HYDROCODONE/APAP 5/325MG TABLET PO PRN (18:00)
[2021-12-11] MEDS ORDERED: MAG HYDROX/AL HYDROX/SIMETH 30 ML UDC PO PRN (18:00)
[2021-12-11] MEDS ORDERED: Z GUARD REMEDY 4 OZ OINT TP PRN (18:00)
[2021-12-11] MEDS ORDERED: MAGNESIUM HYDROXIDE 30 ML UDC PO PRN (18:00)
--- NOTE | 2021-12-11 18:00 | NUR ---
RN ADMITTING NOTES ADMITTED THIS 81 Y/O FEMALE PATIENT FROM E.R TO UNIT @1730, VIA GURNEY, ACCOMPANIED BY ER NURSE RADHA, WITH ADMITTING DIAGNOSIS OF SEIZURE. ON O2 @ 2LPM VIA N/C SPO2 @ 94%, NO SOB NOTED. BREATHING EVEN AND UNLABORED. PLACED PATIENT ON LACING CUTTER. WITH IV ACCESS ON RIGHT HAND, #18G, INTACT AND PATENT. BODY ASSESSMENT DONE, SKIN GENERALLY INTACT. NOTED WITH NON-PITTING EDEMA ON LEFT ARM. SAFETY MEASURES PLCED, BED IN LOWEST LOCKED POSITION, SR UP X2, CALL LIGHT PLACED WITHIN EASY REACH. INITIAL HISTORY OBTAINED FROM [facility]LEY WHO'S AT BEDSIDE, SECONDARY TO PATIENT BEING SLEEPY, R/T ADMINISTRATION OF LORAZEPAM FOR SEIZURE. WILL CONTINUE TO MONITOR, V/S: 98.3, 87, 16, 121/75, 0/10.
--- NOTE | 2021-12-11 19:00 | NUR ---
RN NOTE REPORT RECEIVED FROM SHELLY MANTILLA, PATIENT IN BED, AO X 2, FAMILY AT BEDSIDE, PT APPEARS DROWSY, RESPONDS TO YES OR NO QUESTIONS, IN NO ACUTE DISTRESS AT THIS TIME. RESPIRATIONS UNLABORED, SATURATION AT 95% ON 2L VIA NC, SR ON THE MONITOR, HR IS 87. NOTED IV SITE AT R HAND 18G, PATENT AND FLUSHING WELL, NO S/S OF INFECTION OR INFILTRATION. SAFETY MEASURES AND SEIZURE PRECAUTIONS IMPLEMENTED. 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 PATIENT BED ALARM IS ON. HEAD OF BED ELEVATED. BED IS LOCKED, IN LOWEST POSITION AND SIDE RAILS UP. CALL LIGHT WITHIN REACH OF THE PATIENT. WILL CONTINUE TO MONITOR AND REASSESS FOR ANY CHANGES.
--- NOTE | 2021-12-11 19:50 | NUR ---
RN NOTE 1630 DOSE OF KEPPRA 500 MG IV NOT GIVEN PER SHELLY MANTILLA IT WAS NOT AVAILABLE EARLIER, PATIENT WAS ADMITTED TO UNIT AT 1730. TELEPHONE CALL TO PHARMACY TO VERIFY IF 1630 DOSE OF KEPPRA SHOULD STILL BE GIVEN, PER RAFFI, DO NOT ADMINISTER PATIENT IS GETTING ANOTHER DOSE AT 2100. CLERICAL SPECIALIST [place] MADE AWARE
[2021-12-11] MEDS: IV NS 0.9% 1,000 ML IV PRN (20:08)
[2021-12-11] MEDS ORDERED: LEVETIRACETAM (250 MG) 250 MG TABLET PO SCH ×2 (21:00)
[2021-12-11] MEDS ORDERED: LEVETIRACETAM (500MG) 1,000 MG in IV NS 0.9% 100 ML IV SCH (21:00)
[2021-12-11] MEDS: TRAZODONE 50 MG TABLET PO SCH (21:11)
[2021-12-11] MEDS: LEVETIRACETAM (500MG) 1,000 MG in IV NS 0.9% 100 ML IV SCH (21:11)
[2021-12-11 22:00] VITALS: BP 126/78
[2021-12-12] VITALS: BP 127/71
[2021-12-12 04:00] VITALS: BP 112/66
--- NOTE | 2021-12-12 06:53 | NUR ---
TEXT DR. BR. CAMP FOR MRI APPROVAL.
--- NOTE | 2021-12-12 07:30 | NUR ---
RN OPENING NOTE RECEIVED PATIENT IN BED, ASLEEP, EASILY AWAKEN BY VERBAL STIMULI. RESPONDS TO YES OR NO QUESTIONS, IN NO ACUTE DISTRESS AT THIS TIME. RESPIRATIONS UNLABORED, SATURATION AT 95% ON 2L VIA NC, SR ON THE MONITOR, HR IS 68. NOTED IV SITE AT R HAND 18G, PATENT AND FLUSHING WELL, RFA G#20 ONGOING NS AT 75 CC/HR, INFUSING WELL, NO S/SX OF INFILTRATION NOTED. SAFETY MEASURES AND SEIZURE PRECAUTIONS IMPLEMENTED. 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 PATIENT BED ALARM IS ON. HEAD OF BED ELEVATED. BED IS LOCKED, IN LOWEST POSITION AND SIDE RAILS UP. CALL LIGHT WITHIN REACH OF THE PATIENT. WILL CONTINUE TO MONITOR PATIENT ACCORDINGLY.
[2021-12-12 08:00] VITALS: BP 103/63
[2021-12-12 08:11] LABS: EOSINOPHILS % (AUTO) 0.2 % (0.0-6.0); HEMATOCRIT 36 % (33-45); HEMOGLOBIN 11.7 g/dL (11.5-14.8); LYMPHOCYTES # (AUTO) 0.7 K/uL (0.8-4.8); LYMPHOCYTES % (AUTO) 3.6 % (20.0-44.0); MEAN CORPUSCULAR HGB CONC 33 g/dl (31.0-36.0); MEAN CORPUSCULAR VOLUME 90 fL (82-100); MONOCYTES # (AUTO) 0.2 K/uL (0.1-1.30); MONOCYTES % (AUTO) 0.9 % (2.0-12.0); NEUTROPHILS % (AUTO) 95.3 % (43.0-81.0); PLATELET COUNT (AUTO) 416 K/uL (150-450); RED BLOOD CELL COUNT(AUTO) 3.96 MIL/uL (4.0-5.2)
[2021-12-12] MEDS: FERROUS SULFATE (325 MG) 325 MG/TAB TABLET PO SCH (08:14)
[2021-12-12] MEDS: ASPIRIN 81 MG TAB.CHEW PO SCH (08:14)
[2021-12-12] MEDS: LEVETIRACETAM (500MG) 1,000 MG in IV NS 0.9% 100 ML IV SCH ×2 (08:26→22:03)
[2021-12-12 08:56] LABS: CALCIUM, SERUM 6.9 mg/dL (8.5-10.1); CREATININE 0.6 mg/dL (0.6-1.3); MAGNESIUM 2.1 mg/dL (1.8-2.4); PHOSPHORUS 2.4 mg/dL (2.5-4.9); POTASSIUM 3.6 mmol/L (3.5-5.1)
--- NOTE | 2021-12-12 09:45 | NUR ---
RN NOTES TRIED FOLLOWING UP WITH MRI DEPARTMENT REGARDING THE MRI OF THE BRAIN W/WO CONTRAST, NO ANSWER. WILL KEEP FOLLOWING UP.
[2021-12-12] MEDS: IV NS 0.9% 1,000 ML IV PRN ×2 (09:56→23:40)
[2021-12-12] MEDS ORDERED: ZOSYN IVPB 3.375 G in IV D5W 50ml IV ONE (10:00)
--- NOTE | 2021-12-12 11:14 | NUR ---
RN NOTES TRIED FOLLOWING UP WITH MRI DEPARTMENT REGARDING THE MRI OF THE BRAIN W/WO CONTRAST, NO ANSWER. WILL KEEP FOLLOWING UP.
--- NOTE | 2021-12-12 12:07 | NUR ---
RN NOTES BLADDER SCAN DONE 113 ML, NO INTERVENTION NEEDED AT THIS TIME. Addendum: 12/12/21 at 1208 by FORREST URENA RN DISREGARD ABOVE DOCUMENTATION. WRONG PATIENT.
--- NOTE | 2021-12-12 12:55 | NUR ---
RN NOTES PATIENT WAS PICKED UP FOR MRI OF THE BRAIN W/WO CONTRAST. LEFT UNIT IN STABLE CONDITION.
--- NOTE | 2021-12-12 13:20 | NUR ---
RN NOTES PATIENT CAME BACK FROM MRI DEPARTMENT.
[2021-12-12] MEDS ORDERED: GADOTERATE MEGLUMINE 10 MMOL/20 ML VIAL IV ONE (14:40)
[2021-12-12] MEDS ORDERED: K PHOS NEUTRAL 250 MG TABLET PO ONE (15:30)
[2021-12-12] MEDS: PIPERACILLIN /TAZOBACTAM 3.375 G in IV D5W 100 ML IV SCH ×2 (15:32→23:58)
--- NOTE | 2021-12-12 18:43 | NUR ---
RN CLOSING NOTE PATIENT IN BED, ASLEEP, EASILY AWAKEN BY VERBAL STIMULI. AT BED SIDE. PATIENT IS IN IN NO ACUTE DISTRESS AT THIS TIME. RESPIRATIONS UNLABORED, WITH O2 AT 2L VIA NC, NOTED IV SITE AT R HAND 18G, PATENT AND FLUSHING WELL, RFA G#20 ONGOING NS AT 75 CC/HR, INFUSING WELL, NO S/SX OF INFILTRATION NOTED. SAFETY MEASURES AND SEIZURE PRECAUTIONS IN PLACE. PATIENT BED ALARM IS ON. HEAD OF BED ELEVATED. BED IS LOCKED, IN LOWEST POSITION AND SIDE RAILS UP. CALL LIGHT WITHIN REACH OF THE PATIENT. ALL NEEDS ATTENDED AND MET. DUE MEDS GIVEN ORDERED. WILL ENDORSE TO ONCOMING SHIFT FOR SURY.
--- NOTE | 2021-12-12 19:30 | NUR ---
RN NOTE RECEIVED PATIENT IN BED, AO X 2-3, AT BEDSIDE, PATIENT APPEARS MORE ALERT COMPARED TO YESTERDAY, IN NO ACUTE DISTRESS AT THIS TIME. RESPIRATIONS UNLABORED, SATURATION AT 95% ON 2L VIA NC, HR IS 74. NOTED IV SITE AT R HAND 18G AND RFA 20G, PATENT AND FLUSHING WELL, NO S/S OF INFECTION OR INFILTRATION WITH NS INFUSING AT 75 ML/HR. PATIENT ABLE TO CONSUME 80% OF DINNER. SAFETY MEASURES AND SEIZURE PRECAUTIONS MAINTAINED. 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 PATIENT BED ALARM IS ON. HEAD OF BED ELEVATED. BED IS LOCKED, IN LOWEST POSITION AND SIDE RAILS UP. CALL LIGHT WITHIN REACH OF THE PATIENT. WILL CONTINUE TO MONITOR AND REASSESS FOR ANY CHANGES.
[2021-12-12 20:00] VITALS: BP 100/56
[2021-12-12] MEDS: TRAZODONE 50 MG TABLET PO SCH (22:03)
[2021-12-13 04:00] VITALS: BP 126/74
[2021-12-13] MEDS: PIPERACILLIN /TAZOBACTAM 3.375 G in IV D5W 100 ML IV SCH ×2 (07:26→15:00)
[2021-12-13] MEDS: FERROUS SULFATE (325 MG) 325 MG/TAB TABLET PO SCH (08:10)
[2021-12-13] MEDS: ASPIRIN 81 MG TAB.CHEW PO SCH (08:10)
[2021-12-13] MEDS: LEVETIRACETAM (500MG) 1,000 MG in IV NS 0.9% 100 ML IV SCH (09:08)
--- NOTE | 2021-12-13 10:28 | NUR ---
RN OPENING NOTE RECEIVED PATIENT IN BED, AWAKE A/O 3. NO S/S OF ACUTE DISTRESS AT THIS TIME. RESPIRATIONS UNLABORED, SATURATION AT 95% ON 2L VIA NC. NOTED IV SITE AT R HAND 18G, PATENT AND FLUSHING WELL, RFA G#20 ONGOING NS AT 75 CC/HR, INFUSING WELL, NO S/SX OF INFILTRATION NOTED. SAFETY MEASURES AND SEIZURE PRECAUTIONS IMPLEMENTED. 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 PATIENT BED ALARM IS ON. HEAD OF BED ELEVATED. BED IS LOCKED, IN LOWEST POSITION AND SIDE RAILS UP. CALL LIGHT WITHIN REACH OF THE PATIENT. WILL CONTINUE TO MONITOR THROUGHOUT SHIFT.
[2021-12-13 12:00] VITALS: BP 109/60
[2021-12-13] MEDS ORDERED: K PHOS NEUTRAL 250 MG TABLET PO ONE ×2 (15:30→18:00)
--- NOTE | 2021-12-13 17:40 | NUR ---
RN NOTES RECEIVED ORDER TOO LATE. PHARM HAD TO RE-UPLOAD ORDER.
--- NOTE | 2021-12-13 18:48 | NUR ---
RN CLOSING NOTE PATIENT IN BED, AWAKE WITH AT BED SIDE. NO S/S OF ACUTE DISTRESS AT THIS TIME. RESPIRATIONS UNLABORED, WITH O2 AT 2L VIA NC, NOTED IV SITE AT R HAND 18G, PATENT AND FLUSHING WELL, RFA G#20 ONGOING NS AT 75 CC/HR, INFUSING WELL, NO S/SX OF INFILTRATION NOTED. SAFETY MEASURES AND SEIZURE PRECAUTIONS IN PLACE. PATIENT BED ALARM IS ON. HEAD OF BED ELEVATED. BED IS LOCKED, IN LOWEST POSITION AND SIDE RAILS UP. CALL LIGHT WITHIN REACH OF THE PATIENT. ALL NEEDS ATTENDED AND MET. DUE MEDS GIVEN ORDERED. WILL ENDORSE TO ONCOMING DRAWER IN [facility] NURSE FOR SURY.
--- NOTE | 2021-12-13 19:10 | NUR ---
RN NOTE RECEIVED PATIENT IN BED RESTING ALERT ORIENTED X2 VERBALLY RESPONSIVE ON 2L OXYGEN O2:95% IV SITE IS ON RIGHT FOREARM AND RIGHT HAND INTACT PATENT SAFETY MEASURE IMPLEMENT BED IN LOW POSITON AND LOCKED CALL LIGHT WITHIN REACH CONTINUE TO MONITOR.
[2021-12-13 20:00] VITALS: BP 117/74
[2021-12-13] MEDS: LEVETIRACETAM (250 MG) 250 MG TABLET PO SCH (20:19)
[2021-12-13] MEDS: TRAZODONE 50 MG TABLET PO SCH (21:54)
[2021-12-14] MEDS: PIPERACILLIN /TAZOBACTAM 3.375 G in IV D5W 100 ML IV SCH ×2 (00:06→07:18)
[2021-12-14 04:00] VITALS: BP 114/76
[2021-12-14 07:40] LABS: BASOPHILS % (AUTO) 0.5 % (0.0-2.0); EOSINOPHILS % (AUTO) 1.7 % (0.0-6.0); HEMATOCRIT 28 % (33-45); LYMPHOCYTES % (AUTO) 10.7 % (20.0-44.0); MEAN CORPUSCULAR HGB CONC 35 g/dl (31.0-36.0); MEAN CORPUSCULAR VOLUME 87 fL (82-100); MONOCYTES # (AUTO) 0.3 K/uL (0.1-1.30); MONOCYTES % (AUTO) 3.3 % (2.0-12.0); NEUTROPHILS # (AUTO) 7.7 K/uL (1.8-8.9); NEUTROPHILS % (AUTO) 83.8 % (43.0-81.0); PLATELET COUNT (AUTO) 430 K/uL (150-450); RED BLOOD CELL COUNT(AUTO) 3.29 MIL/uL (4.0-5.2); WHITE BLOOD COUNT (AUTO) 9.2 K/uL (4.3-11.0)
--- NOTE | 2021-12-14 07:46 | NUR ---
RN NOTE PATIENT REMAINS ALERT ORIENTED X2 VERBALLY RESPONSIVE NO SOB NOT ACUTE DISTRESS NOTED ALL DUE MEDS GIVEN MD ORDERED HEAD OF THE BED ELEVATED ALL THE TIME,KEPT CLEAN AND DRY ALL THE TIME ALL NEEDS MET ENDORSE NEXT SHIFT FOR CONTINUATION OF CARE.
--- NOTE | 2021-12-14 07:59 | NUR ---
RN OPENING NOTE RECEIVED PATIENT IN BED, AWAKE A/O 3. NO S/S OF ACUTE DISTRESS AT THIS TIME. RESPIRATIONS UNLABORED, SATURATION AT 95% ON 2L VIA NC. NOTED IV SITE AT R HAND 18G, PATENT AND FLUSHING WELL, RFA G#20 FLUSHING WELL, NO S/SX OF INFILTRATION NOTED. SAFETY MEASURES AND SEIZURE PRECAUTIONS IMPLEMENTED. 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 PATIENT BED ALARM IS ON. HEAD OF BED ELEVATED. BED IS LOCKED, IN LOWEST POSITION AND SIDE RAILS UP. CALL LIGHT WITHIN REACH OF THE PATIENT. WILL CONTINUE TO MONITOR THROUGHOUT SHIFT.
[2021-12-14 08:00] LABS: CALCIUM, SERUM 6.8 mg/dL (8.5-10.1); CARBON DIOXIDE 21 mmol/L (21-32); CHLORIDE 104 mmol/L (98-107); CREATININE 0.5 mg/dL (0.6-1.3); GLUCOSE 100 mg/dL (74-106); SODIUM SERUM 135 mmol/L (136-145); UREA NITROGEN, BLOOD 10 mg/dL (7-18)
[2021-12-14] MEDS: FERROUS SULFATE (325 MG) 325 MG/TAB TABLET PO SCH (08:20)
[2021-12-14] MEDS: LEVETIRACETAM (250 MG) 250 MG TABLET PO SCH (08:21)
[2021-12-14] MEDS: ASPIRIN 81 MG TAB.CHEW PO SCH (08:21)
[2021-12-14 08:27] LABS: POTASSIUM 2.5 mmol/L (3.5-5.1)
[2021-12-14] MEDS ORDERED: LEVE500T9 PO (08:48)
[2021-12-14] MEDS ORDERED: POTASSIUM CHLORIDE 20 MEQ TAB.PRT.SR PO ONE (09:00)
[2021-12-14 09:14] LABS: EOSINOPHILS % (MANUAL) 1 % (0-4); LYMPHOCYTES % (MANUAL) 8 % (16-48); MONOCYTES % (MANUAL) 7 % (0-11.0); NEUTROPHILS % (MANUAL) 84 (42-76)
[2021-12-14] MEDS ORDERED: POTASSIUM PHOSPHATE MM 15 MMOL in IV NS 0.9% 250 ML IV SCH (10:00)
[2021-12-14 12:00] VITALS: BP 121/71
--- NOTE | 2021-12-14 14:08 | NUR ---
RN NOTES PT POTASSIUM LEVEL IS 4.3, WILL GET PT READY FOR DISCHARGE.
--- NOTE | 2021-12-14 15:06 | NUR ---
DC NOTES PT DC'D TO HOME IN STABLE CONDITION. DC INSTRUCTIONS GIVEN AND EXPLAINEDTO PT. PT VERBALIZED UNDERSTANDING. ALL PAPERWORK SIGNED AND COMPLETED. ALL BELONGINGS SENT. IV ACCESS REMOVED WITH NO COMPLICATIONS. PT LEFT UNIT VIA WHEELCHAIR HAPPILY WITH .
[2021-12-14] MEDS ORDERED: K PHOS NEUTRAL 250 MG TABLET PO ONE (16:00)
== END 2021-12-14 15:20 | disposition home or self-care (01) | DRG 101 ==
LOC: ER 12:05 → TELE1 16:06 → MEDSG1 12-12 08:00
PROVIDERS: ADMIT Internal Medicine; ATTEND Internal Medicine
DX: R56.9 Unspecified convulsions (principal); E87.1 Hypo-osmolality and hyponatremia; C34.12 Malignant neoplasm of upper lobe, left bronchus or lung; E44.0 Moderate protein-calorie malnutrition; Z68.1 Body mass index [BMI] 19.9 or less, adult; D72.829 Elevated white blood cell count, unspecified; D64.9 Anemia, unspecified; E88.09 Other disorders of plasma-protein metabolism, not elsewhere classified; Z92.21 Personal history of antineoplastic chemotherapy; Z85.3 Personal history of malignant neoplasm of breast; Z92.3 Personal history of irradiation; Y92.009 Unspecified place in unspecified non-institutional (private) residence as the place of occurrence of the external cause; T50.995A Adverse effect of other drugs, medicaments and biological substances, initial encounter; Z87.891 Personal history of nicotine dependence; Z20.822 Contact with and (suspected) exposure to COVID-19
CPT/HCPCS: 36415; 70450-TC; 70553-TC; 71045-TC; 80048-TC; 80076-TC; 83735-TC; 84100-TC; 84132-TC; 85025-TC; 87040-TC; 87081-TC; A9575; G0378; G0480; J0456; J0696; J1953; J2060; J2543; J3490; J7030; J7040; J7050; J7060

== ENCOUNTER 2022-02-04 16:54 | Inpatient (IN) | payer MEDICARE, BC ==
[~2022-02-04] VITALS: Ht 170.2 cm; Wt 46.7 kg
[2022-02-04] MEDS ORDERED: IV NS 0.9% 1,000 ML BAG IV ONE (17:30)
--- NOTE | 2022-02-04 17:56 | NUR ---
Patient came in to the er " On Chemo treatment- last dose 1wk ago. Been feeling weak since No strength to stand up". On room air, breathing evenly and unlabored. Connected to the monitor and pulse ox. kept comfortable, will continue to monitor accordingly.
--- NOTE | 2022-02-04 18:04 | NUR ---
MOVE SHEET SUBMITTED.
[2022-02-04 18:18] LABS: BASOPHILS % (AUTO) 0.2 % (0.0-2.0); EOSINOPHILS % (AUTO) 0.3 % (0.0-6.0); HEMATOCRIT 30 % (33-45); HEMOGLOBIN 9.9 g/dL (11.5-14.8); LYMPHOCYTES # (AUTO) 1.2 K/uL (0.8-4.8); LYMPHOCYTES % (AUTO) 6.7 % (20.0-44.0); MEAN CORPUSCULAR HGB CONC 33 g/dl (31.0-36.0); MEAN CORPUSCULAR VOLUME 96 fL (82-100); MONOCYTES # (AUTO) 1.1 K/uL (0.1-1.30); MONOCYTES % (AUTO) 5.9 % (2.0-12.0); NEUTROPHILS # (AUTO) 15.5 K/uL (1.8-8.9); NEUTROPHILS % (AUTO) 86.9 % (43.0-81.0); PLATELET COUNT (AUTO) 191 K/uL (150-450); WHITE BLOOD COUNT (AUTO) 17.9 K/uL (4.3-11.0)
[2022-02-04 18:44] LABS: CALCIUM, SERUM 8.3 mg/dL (8.5-10.1); CARBON DIOXIDE 28 mmol/L (21-32); CHLORIDE 103 mmol/L (98-107); CREATININE 0.6 mg/dL (0.6-1.3); GLUCOSE 105 mg/dL (74-106); POTASSIUM 3.8 mmol/L (3.5-5.1); SODIUM SERUM 136 mmol/L (136-145); UREA NITROGEN, BLOOD 20 mg/dL (7-18)
[2022-02-04 18:48] LABS: THYROID STIMULATING HORMONE 3.884 uIU/mL (0.358-3.74)
[2022-02-04 18:49] LABS: SERUM AMMONIA 2 umol/L (11-32)
[2022-02-04 18:50] LABS: ALANINE AMINOTRANSFERASE 13 U/L (12-78); ALBUMIN 2.1 g/dL (3.4-5.0); ALKALINE PHOSPHATASE 123 U/L (46-116); ASPARTATE AMINOTRANSFERASE 16 U/L (15-37); BILIRUBIN,DIRECT 0.1 mg/dL (0.0-0.2); BILIRUBIN,TOTAL 0.3 mg/dL (0.2-1.0); TOTAL PROTEIN, SERUM 6.3 g/dL (6.4-8.2)
[2022-02-04 18:52] LABS: URIC ACID 2.9 mg/dL (2.6-7.2)
[2022-02-04 18:57] LABS: BILIRUBIN,URINE NEGATIVE (NEGATIVE); COLOR,URINE YELLOW (YELLOW); LEUKOCYTE ESTERASE ,URINE SMALL (NEGATIVE); NITRITE, URINE POSITIVE (NEGATIVE); PROTEIN,URINE 100 mg/dl (NEGATIVE); UGLUCOSE NEGATIVE (NEGATIVE); UROBILINOGEN,URINE 0.2 EU/dL (0.2)
--- NOTE | 2022-02-04 19:11 | NUR ---
covid swab collected and sent to lab.
[2022-02-04] MEDS ORDERED: CEFTRIAXONE 1GM BAG (ER ONLY) 1 GM/50 ML PIGGYBACK IV ONE (19:30)
--- NOTE | 2022-02-04 19:53 | NUR ---
EPIC PAGED PER DR CARRANZA.
[2022-02-04] MEDS ORDERED: CEFTRIAXONE 1GM BAG (ER ONLY) 50 ML IV ONE (20:22)
[2022-02-04 20:27] LABS: BACTERIA,URINE 3+ /HPF (None Seen); RBC,URINE 51-80 /HPF (0-2)
[2022-02-04] MEDS ORDERED: ONDANSETRON HCL/PF 4 MG/2 ML VIAL IVP PRN (20:30)
[2022-02-04] MEDS ORDERED: ACETAMINOPHEN 325 MG TABLET PO PRN (20:30)
[2022-02-04] MEDS: CEFEPIME 1 GM in IV D5W 50 ML IV SCH (20:30)
[2022-02-04 20:43] LABS: BAND % (MANUAL) 8 % (0.0-5.0); LYMPHOCYTES % (MANUAL) 10 % (16-48); MONOCYTES % (MANUAL) 5 % (0-11.0); NEUTROPHILS % (MANUAL) 76 (42-76); REACTIVE LYMPHOCYTES 1 % (0-0)
--- NOTE | 2022-02-04 21:01 | NUR ---
RECIEVED [facility] [id number]
--- NOTE | 2022-02-04 21:04 | NUR ---
PHILLY BUI ENTRY LEVEL SOFTWARE DEVELOPER AT PT'S BEDSIDE
--- NOTE | 2022-02-04 21:20 | NUR ---
REPORT GIVEN TO ISRRAEL Aceves RN FOR SURY
[2022-02-04 21:50] VITALS: BP 120/77
--- NOTE | 2022-02-04 21:50 | NUR ---
ADMISSION NOTES PT ARRIVED VIA GURNEY ACCOMPANIED BY RN AND EMT. AOx3, ABLE TO MAKE NEEDS KNOWN. ON RA AND TOLERATING WELL. NO SOB NOTED. NO S/SX OF RESPIRATORY DISTRESS NOTED. TELE MONITOR DETECTS SINUS RHYTHM WITH RATE OF 78. IV ACCESS IN RAC #18 G RUNNING NS @ 50 ML/HR. UNABLE TO ASSESS PATIENT'S BACK AND SACRUM FOR WOUNDS PATIENT REFUSED TO BE LAID FLAT. SAFETY PRECAUTIONS IN PLACE: BED IN LOWEST, LOCKED POSITION, SIDERAILS UPx2, AND BRAKES ON. TABLE AND CALL LIGHT WITHIN REACH. WILL CONTINUE TO MONITOR.
--- NOTE | 2022-02-04 21:53 | NUR ---
TRANSFERRING PT TO 311 VIA ACLS
[2022-02-04] MEDS ORDERED: VANCOMYCIN 1 GM VIAL ONE (22:30)
[2022-02-04] MEDS: VANCOMYCIN 0.75 GM in IV D5W 250 ML IV SCH (22:37)
[2022-02-04] MEDS: IV NS 0.9% 1,000 ML IV PRN (22:39)
[2022-02-05] VITALS: BP 109/80
[2022-02-05] MEDS ORDERED: ALBUTEROL FS 2.5 MG/3 ML VIAL.NEB NEB PRN (01:00)
[2022-02-05] MEDS: LEVETIRACETAM (250 MG) 250 MG TABLET PO SCH ×3 (01:04→20:09)
[2022-02-05] MEDS: HYDROCODONE/APAP 10/325MG TABLET PO PRN ×4 (01:04→23:57)
--- NOTE | 2022-02-05 01:05 | NUR ---
ADMINISTERED NORCO FOR PAIN PER MD ORDER. VS WNL. WILL CONTINUE TO MONITOR.
--- NOTE | 2022-02-05 02:41 | NUR ---
REQUESTED IVPB OF CEFEPIME. NONE PRESENT ON FLOOR PER CHARGE NURSE. REQUESTED FROM NURSING HAND FLESHER BUT NO CEFEPIME HAS ARRIVED. WILL FOLLOW UP.
[2022-02-05 04:00] VITALS: BP 119/69
[2022-02-05 04:03] LABS: BASOPHILS % (AUTO) 0.2 % (0.0-2.0); EOSINOPHILS % (AUTO) 0.7 % (0.0-6.0); HEMATOCRIT 25 % (33-45); HEMOGLOBIN 8.7 g/dL (11.5-14.8); LYMPHOCYTES # (AUTO) 1.1 K/uL (0.8-4.8); LYMPHOCYTES % (AUTO) 8.3 % (20.0-44.0); MEAN CORPUSCULAR HGB CONC 34 g/dl (31.0-36.0); MEAN CORPUSCULAR VOLUME 94 fL (82-100); MONOCYTES # (AUTO) 0.9 K/uL (0.1-1.30); MONOCYTES % (AUTO) 7.3 % (2.0-12.0); NEUTROPHILS # (AUTO) 10.7 K/uL (1.8-8.9); NEUTROPHILS % (AUTO) 83.5 % (43.0-81.0); PLATELET COUNT (AUTO) 176 K/uL (150-450); RED BLOOD CELL COUNT(AUTO) 2.69 MIL/uL (4.0-5.2); WHITE BLOOD COUNT (AUTO) 12.8 K/uL (4.3-11.0)
[2022-02-05 04:31] LABS: ALANINE AMINOTRANSFERASE 13 U/L (12-78); ALBUMIN 1.8 g/dL (3.4-5.0); ALKALINE PHOSPHATASE 102 U/L (46-116); ASPARTATE AMINOTRANSFERASE 15 U/L (15-37); BILIRUBIN,TOTAL 0.2 mg/dL (0.2-1.0); CALCIUM, SERUM 7.1 mg/dL (8.5-10.1); CARBON DIOXIDE 23 mmol/L (21-32); CHLORIDE 106 mmol/L (98-107); CREATININE 0.6 mg/dL (0.6-1.3); GLUCOSE 110 mg/dL (74-106); MAGNESIUM 1.6 mg/dL (1.8-2.4); PHOSPHORUS 2.7 mg/dL (2.5-4.9); POTASSIUM 3.8 mmol/L (3.5-5.1); SODIUM SERUM 137 mmol/L (136-145); TOTAL PROTEIN, SERUM 5.2 g/dL (6.4-8.2); UREA NITROGEN, BLOOD 16 mg/dL (7-18)
--- NOTE | 2022-02-05 04:54 | NUR ---
CRITICAL LAB RECEIVED CRITICAL LAB OF 56 FOR TROPONIN. ELEVATED FROM PREVIOUS TROPONIN OF 39. PATIENT DENIED CHEST PAIN. LET SUPPLIER SPECIALIST WILLIAM KNOW AND SHE SAID TO "CONTINUE TO MONITOR PATIENT".
--- NOTE | 2022-02-05 06:52 | NUR ---
RN CLOSING NOTES PT IN BED, ASLEEP, AWAKENS TO VERBAL STIMULI. AOx3, ABLE TO MAKE NEEDS KNOWN. ON RA AND TOLERATING WELL. NO SOB NOTED. NO S/SX OF RESPIRATORY DISTRESS NOTED. TELE MONITOR DETECTS SINUS RHYTHM WITH RATE OF 78. IV ACCESS IN RAC #18 G RUNNING NS @ 50 ML/HR. UNABLE TO ASSESS PATIENT'S BACK AND SACRUM FOR WOUNDS PATIENT REFUSED TO BE LAID FLAT. ALL ORDERS CARRIED OUT. ALL NEEDS MET. PT KEPT CLEAN AND DRY. TREATED PAIN ONCE DURING SHIFT. SAFETY PRECAUTIONS IN PLACE: BED IN LOWEST, LOCKED POSITION, SIDERAILS UPx2, AND BRAKES ON. TABLE AND CALL LIGHT WITHIN REACH. WILL ENDORSE TO ONCOMING SHIFT FOR SURY.
--- NOTE | 2022-02-05 07:58 | NUR ---
RN OPENING NOTE- PT IN BED, ASLEEP, EASILY AWAKENED, AOx3, ABLE TO MAKE NEEDS KNOWN. ON RA AND TOLERATING WELL. NO SOB NOTED. NO S/SX OF RESPIRATORY DISTRESS NOTED. TELE MONITOR DETECTS SINUS RHYTHM WITH RATE OF 76. IV ACCESS IN RAC #18 G RUNNING NS @ 50 ML/HR. PT KEPT CLEAN AND DRY SAFETY PRECAUTIONS IN PLACE: BED IN LOWEST, LOCKED POSITION, SIDERAILS UPx2, AND BRAKES ON. TABLE AND CALL LIGHT WITHIN REACH. MONITOR / ASSIST
[2022-02-05 08:00] VITALS: BP 157/76
[2022-02-05] MEDS: ENOXAPARIN SODIUM 40 MG/0.4 ML DISP.SYRIN SQ SCH (08:24)
[2022-02-05] MEDS: VANCOMYCIN 0.75 GM in IV D5W 250 ML IV SCH ×2 (08:27→21:35)
[2022-02-05] MEDS ORDERED: ASPIRIN 81 MG TAB.CHEW PO SCH ×2 (09:00)
[2022-02-05] MEDS ORDERED: FERROUS SULFATE (325 MG) 325 MG/TAB TABLET PO SCH (09:00)
[2022-02-05] MEDS ORDERED: PANTOPRAZOLE 40 MG VIAL IV SCH (09:00)
[2022-02-05] MEDS ORDERED: MAGNESIUM OXIDE 400 MG TABLET PO ONE (10:00)
[2022-02-05 11:33] LABS: BAND % (MANUAL) 2 % (0.0-5.0); LYMPHOCYTES % (MANUAL) 9 % (16-48); MONOCYTES % (MANUAL) 6 % (0-11.0); NEUTROPHILS % (MANUAL) 82 (42-76)
[2022-02-05 11:34] LABS: METAMYELOCYTES % 1 % (0-0)
[2022-02-05 16:00] VITALS: BP 132/82
[2022-02-05 17:02] LABS: THYROID STIMULATING HORMONE 4.005 uIU/mL (0.358-3.74)
[2022-02-05] MEDS: IV NS 0.9% 1,000 ML IV PRN (18:03)
[2022-02-05] MEDS: CEFEPIME 1 GM in IV D5W 50 ML IV SCH (20:09)
[2022-02-05 20:11] VITALS: BP 118/74
[2022-02-05] MEDS: TRAZODONE 50 MG TABLET PO SCH (21:34)
--- NOTE | 2022-02-05 23:35 | NUR ---
RN OPENING NOTES RECEIVED PT IN BED, AWAKE, AT BEDSIDE. AOx3, ABLE TO MAKE NEEDS KNOWN. ON RA AND TOLERATING WELL. NO SOB NOTED. NO S/SX OF RESPIRATORY DISTRESS NOTED. TELE MONITOR DETECTS SINUS RHYTHM WITH PACs AND RATE OF 78. IV ACCESS IN RAC #18 G RUNNING NS @ 50 ML/HR. SAFETY PRECAUTIONS IN PLACE: BED IN LOWEST, LOCKED POSITION, SIDERAILS UPx2, AND BRAKES ON. TABLE AND CALL LIGHT WITHIN REACH. WILL CONTINUE TO MONITOR. Addendum: 02/05/22 at 2336 by KIMBERLY HOGAN RN OPENING NOTES SHOULD BE AT 1930
--- NOTE | 2022-02-05 23:57 | NUR ---
ADMINISTERED NORCO FOR PAIN PER MD ORDER. VS WNL. WILL CONTINUE TO MONITOR.
[2022-02-06 00:12] VITALS: BP 137/80
[2022-02-06 04:28] VITALS: BP 137/80
[2022-02-06] MEDS: HYDROCODONE/APAP 10/325MG TABLET PO PRN (06:16)
--- NOTE | 2022-02-06 06:16 | NUR ---
ADMINISTERED NORCO FOR PAIN PER MD ORDER. VS WNL. WILL CONTINUE TO MONITOR.
[2022-02-06 06:46] LABS: BASOPHILS % (AUTO) 0.3 % (0.0-2.0); EOSINOPHILS % (AUTO) 0.8 % (0.0-6.0); HEMATOCRIT 29 % (33-45); HEMOGLOBIN 9.8 g/dL (11.5-14.8); LYMPHOCYTES # (AUTO) 0.9 K/uL (0.8-4.8); LYMPHOCYTES % (AUTO) 10.4 % (20.0-44.0); MEAN CORPUSCULAR HGB CONC 34 g/dl (31.0-36.0); MEAN CORPUSCULAR VOLUME 95 fL (82-100); MONOCYTES # (AUTO) 0.9 K/uL (0.1-1.30); MONOCYTES % (AUTO) 10.5 % (2.0-12.0); NEUTROPHILS # (AUTO) 6.6 K/uL (1.8-8.9); PLATELET COUNT (AUTO) 205 K/uL (150-450); RED BLOOD CELL COUNT(AUTO) 3.02 MIL/uL (4.0-5.2); WHITE BLOOD COUNT (AUTO) 8.5 K/uL (4.3-11.0)
--- NOTE | 2022-02-06 06:55 | NUR ---
RN CLOSING NOTES PT IN BED, LAYING ON LEFT SIDE, AWAKE. AOx3, ABLE TO MAKE NEEDS KNOWN. ON RA AND TOLERATING WELL. NO SOB NOTED. NO S/SX OF RESPIRATORY DISTRESS NOTED. TELE MONITOR DETECTS SINUS RHYTHM WITH PACs AND RATE OF 78. IV ACCESS IN RAC #18 G RUNNING NS @ 50 ML/HR. ALL ORDERS CARRIED OUT. ALL NEEDS MET. PT KEPT CLEAN AND DRY. SAFETY PRECAUTIONS IN PLACE: BED IN LOWEST, LOCKED POSITION, SIDERAILS UPx2, AND BRAKES ON. TABLE AND CALL LIGHT WITHIN REACH. WILL ENDORSE TO ONCOMING SHIFT FOR SURY.
[2022-02-06 07:05] LABS: CALCIUM, SERUM 7.3 mg/dL (8.5-10.1); CARBON DIOXIDE 24 mmol/L (21-32); CHLORIDE 105 mmol/L (98-107); CREATININE 0.6 mg/dL (0.6-1.3); GLUCOSE 92 mg/dL (74-106); MAGNESIUM 1.7 mg/dL (1.8-2.4); PHOSPHORUS 2.7 mg/dL (2.5-4.9); POTASSIUM 3.8 mmol/L (3.5-5.1); SODIUM SERUM 136 mmol/L (136-145); UREA NITROGEN, BLOOD 11 mg/dL (7-18)
[2022-02-06 07:10] LABS: THYROID STIMULATING HORMONE 2.427 uIU/mL (0.358-3.74)
[2022-02-06 08:00] VITALS: BP 99/66
[2022-02-06] MEDS: PANTOPRAZOLE 40 MG TABLET.DR PO SCH ×2 (08:16→09:36)
[2022-02-06] MEDS: Magnesium 1GM/D5W 100ML PREMIX 100 ML IV SCH ×2 (08:57→11:01)
[2022-02-06] MEDS: LEVETIRACETAM (250 MG) 250 MG TABLET PO SCH ×2 (09:36→21:15)
[2022-02-06] MEDS: ENOXAPARIN SODIUM 40 MG/0.4 ML DISP.SYRIN SQ SCH (09:37)
--- NOTE | 2022-02-06 10:45 | NUR ---
c/o pain,states no one has given her the oxy med from home since she has been here.rn checked home list med not on list.told her i would inform .
--- NOTE | 2022-02-06 11:10 | NUR ---
spouse here with oxy med bottle.reviewed use with leslee.now reed licensed club manager in to see pt. review of meds by
--- NOTE | 2022-02-06 11:50 | NUR ---
rn in to rm. to offer pain med to pt.states she took it out of her own bottle.spouse instructed to take bottle home.no more meds in bottle.pt. made awre not to be taking meds from home.pt. and spouse agreeable.
--- NOTE | 2022-02-06 12:12 | NUR ---
dr. crooks made aware pt. used own med supply.
[2022-02-06] MEDS ORDERED: IV NS 0.9% 250 ML IV ONE (12:19)
--- NOTE | 2022-02-06 14:58 | NUR ---
requesting pain med after ct scan,vs taken.
[2022-02-06] MEDS: oxyCODONE IR immediate release 5 MG PO PRN ×2 (15:11→19:59)
[2022-02-06 16:00] VITALS: BP 141/71
--- NOTE | 2022-02-06 17:13 | NUR ---
MEDICATED X 2 FOR PAIN WITH OXY-IR.
--- NOTE | 2022-02-06 19:45 | NUR ---
RN OPENING NOTE PATIENT IN BED, AWAKE. PATIENT IS A/O X 4, ABLE TO MAKE NEEDS KNOWN. PATIENT IS ON RA AT THIS TIME, 90% O2 SAT. PATIENT GIVEN 2 LPM, 95% NOW. PATIENT COMPLAINING OF 8/10 PAIN N THE LEFT SIDE BREAST. WILL GIVE PAIN MEDICATION APPROPRIATELY. PATIENT HAS A R AC 22 G PATENT AND INTACT, RUNNING NS AT 50 ML/HR. SAFETY MEASURES IN PLACE: BED LOCKED AND IN LOWEST POSITION, CALL LIGHT WITHIN REACH, SIDE RAILS UP. WILL MONITOR PATIENT CLOSELY.
[2022-02-06] MEDS: CEFEPIME 1 GM in IV D5W 50 ML IV SCH (19:55)
[2022-02-06 20:00] VITALS: BP 111/63
[2022-02-06] MEDS: IV NS 0.9% 1,000 ML IV PRN (20:33)
[2022-02-06] MEDS: TRAZODONE 50 MG TABLET PO SCH ×2 (21:15→21:21)
--- NOTE | 2022-02-06 22:00 | NUR ---
PATIENT REFUSED TRAZADONE Addendum: 02/06/22 at 2201 by ADELA AYALA RN STATES SHE DOES NOT NEED IT
[2022-02-07] MEDS: oxyCODONE IR immediate release 5 MG PO PRN ×4 (02:19→17:07)
--- NOTE | 2022-02-07 02:23 | NUR ---
PATIENT GIVEN OXY IR FOR SEVERE PAIN ON THE LEFT BREAST/CHEST
--- NOTE | 2022-02-07 06:43 | NUR ---
RN CLOSING NOTE PATIENT IN BED, AWAKE. PATIENT IS A/O X 4, ABLE TO MAKE NEEDS KNOWN. PATIENT IS ON 2LPM, TOLERATING WELL, NO SOB NOTED. BREATHING EVEN AND UNLABORED. PATIENT KEEPS TAKING OFF NASAL CANNULA, EDUCATION GIVEN REGARDING LOW O2. PATIENT STATES IT'S "ALWAYS LOW". PATIENT COMPLAINS OF PAIN ON L BREAST, MANAGED WITH OXY IR 15 MG. PATIENT HAS A R FA 22 G PATENT AND INTACT, RUNNING NS AT 50 ML/HR. GEORGE CATHETER DRAINING VIA GRAVITY. SAFETY MEASURES IN PLACE: BED LOCKED, CALL LIGHT WITHIN REACH, SIDE RAILS UP. PATIENT WANTS THE BED HIGH AT ALL TIMES. EDUCATED PATIENT ON SAFETY, BUT STILL REFUSES TO HAVE THE BED AT LOWEST POSITION. ALL NEEDS MET AND ATTENDED. ALL ORDERS CARRIED OUT. WILL ENDORSE TO DAY SHIFT NURSE FOR SURY.
[2022-02-07 06:56] LABS: CALCIUM, SERUM 7.2 mg/dL (8.5-10.1); CARBON DIOXIDE 24 mmol/L (21-32); CHLORIDE 103 mmol/L (98-107); CREATININE 0.5 mg/dL (0.6-1.3); GLUCOSE 98 mg/dL (74-106); MAGNESIUM 1.8 mg/dL (1.8-2.4); PHOSPHORUS 2.5 mg/dL (2.5-4.9); POTASSIUM 3.9 mmol/L (3.5-5.1); SODIUM SERUM 133 mmol/L (136-145); UREA NITROGEN, BLOOD 9 mg/dL (7-18)
[2022-02-07 07:11] LABS: BASOPHILS % (AUTO) 0.3 % (0.0-2.0); EOSINOPHILS % (AUTO) 0.5 % (0.0-6.0); HEMATOCRIT 27 % (33-45); HEMOGLOBIN 9.5 g/dL (11.5-14.8); LYMPHOCYTES # (AUTO) 0.9 K/uL (0.8-4.8); LYMPHOCYTES % (AUTO) 10.6 % (20.0-44.0); MEAN CORPUSCULAR HGB CONC 35 g/dl (31.0-36.0); MEAN CORPUSCULAR VOLUME 94 fL (82-100); MONOCYTES # (AUTO) 0.8 K/uL (0.1-1.30); MONOCYTES % (AUTO) 10.1 % (2.0-12.0); NEUTROPHILS # (AUTO) 6.4 K/uL (1.8-8.9); NEUTROPHILS % (AUTO) 78.5 % (43.0-81.0); PLATELET COUNT (AUTO) 235 K/uL (150-450); RED BLOOD CELL COUNT(AUTO) 2.86 MIL/uL (4.0-5.2); WHITE BLOOD COUNT (AUTO) 8.2 K/uL (4.3-11.0)
--- NOTE | 2022-02-07 07:24 | NUR ---
MS RN OPENING NOTE RECEIVED PATIENT IN BED, AWAKE. A/O X 3, ABLE TO MAKE NEEDS KNOWN. PATIENT IS ON 2LPM VIA NC, TOLERATING WELL. BREATHING EVEN AND UNLABORED. NOT IN ANY SIGN OF RESPIRATORY DISTRESS. IV ACCESS IN RFA G #22, PATENT AND INTACT, RUNNING NS AT 50 ML/HR. GEORGE CATHETER IN PLACE AND DRAINING WELL. SAFETY MEASURES IN PLACE: BED IN LOCKED POSITION, CALL LIGHT WITHIN REACH, SIDE RAILS UP. PATIENT WANTS THE BED HIGH AT ALL TIMES. EDUCATED PATIENT ON SAFETY, BUT STILL REFUSES TO HAVE THE BED AT LOWEST POSITION. WILL CONTINUE TO MONITOR.
[2022-02-07 08:00] VITALS: BP 122/73
[2022-02-07] MEDS: PANTOPRAZOLE 40 MG TABLET.DR PO SCH (08:04)
[2022-02-07 08:06] LABS: IMMUNOGLOBULIN A, SERUM 184 mg/dL (64-422); IMMUNOGLOBULIN G, SERUM 774 mg/dL (586-1602); IMMUNOGLOBULIN M, SERUM 133 mg/dL (26-217)
[2022-02-07] MEDS: LEVETIRACETAM (250 MG) 250 MG TABLET PO SCH (08:50)
[2022-02-07] MEDS: ENOXAPARIN SODIUM 40 MG/0.4 ML DISP.SYRIN SQ SCH (08:51)
[2022-02-07] MEDS ORDERED: LEVO500T90 PO (13:44)
[2022-02-07 16:00] VITALS: BP 116/77
--- NOTE | 2022-02-07 17:15 | NUR ---
PAYROLL CLERK NOTES PT DISCHARGED TO [facility] IN STABLE CONDITION. PT A/O X3. ABLE TO MAKE NEEDS KNOWN. ON O2 AT 2 L/MIN VIA NASAL CANNULA, TOLERATING WELL WITH SPO2 AT 96%. BREATHING EVEN AND UNLABORED. NOT IN ANY SIGN OF RESPIRATORY DISTRESS. V/S TAKEN, STABLE AND RECORDED. PT REFUSED BODY CHECK AND ALSO REFUSED SKIN PICTURE TO BE TAKEN. ALL BELONGINGS ACCOUNTED FOR. ALL DISCHARGED INSTRUCTIONS AND PATIENT TEACHING PROVIDED TO PT AND PT VERBALIZED UNDERSTANDING AND SIGNED DISCHARGED DOCUMENTS. IV ACCESS IN RFA G #22 REMOVED WITH NO ACTIVE BLEEDING NOTED. DRY PRESSURE DRESSING APPLIED AT SITE. GEORGE CATH. REMOVED, WITH NO COMPLAINT OF DISCOMFORT VOICED NOTED. PT LEFT THE UNIT VIA GURNEY PICKED UP BY 2 ASSEMBLER BRAZER. MD AND CHARGED NURSE AWARE OF DISCHARGED.
[2022-02-08 10:07] LABS: *SPE A/G RATIO 0.7 (0.7-1.7); *SPE ALPHA-1-GLOBULIN 0.4 g/dL (0.0-0.4); *SPE BETA GLOBULIN 0.7 g/dL (0.7-1.3); *SPE M-SPIKE 0.1 g/dL (Not Observed)
== END 2022-02-07 17:30 | DRG 871 ==
LOC: ER 17:10 → MED 21:19 → TELE 02-05 01:36 → MED 02-06 11:56
PROVIDERS: ADMIT Registered Nurse; ATTEND Student in an Organized Health Care Education/Training Program
DX: A41.9 Sepsis, unspecified organism (principal); J18.9 Pneumonia, unspecified organism; R65.21 Severe sepsis with septic shock; E43 Unspecified severe protein-calorie malnutrition; N13.6 Pyonephrosis; N39.0 Urinary tract infection, site not specified; C34.90 Malignant neoplasm of unspecified part of unspecified bronchus or lung; D84.9 Immunodeficiency, unspecified; G40.909 Epilepsy, unspecified, not intractable, without status epilepticus; R65.20 Severe sepsis without septic shock; N81.4 Uterovaginal prolapse, unspecified; Z20.822 Contact with and (suspected) exposure to COVID-19; B96.89 Other specified bacterial agents as the cause of diseases classified elsewhere; Y95 Nosocomial condition; Z85.118 Personal history of other malignant neoplasm of bronchus and lung; Z85.3 Personal history of malignant neoplasm of breast; Z92.3 Personal history of irradiation; Z85.830 Personal history of malignant neoplasm of bone; I89.0 Lymphedema, not elsewhere classified; R26.9 Unspecified abnormalities of gait and mobility; E88.09 Other disorders of plasma-protein metabolism, not elsewhere classified; D50.9 Iron deficiency anemia, unspecified; F17.200 Nicotine dependence, unspecified, uncomplicated; F42.9 Obsessive-compulsive disorder, unspecified; D18.03 Hemangioma of intra-abdominal structures; Z79.82 Long term (current) use of aspirin; Z79.51 Long term (current) use of inhaled steroids; Z79.899 Other long term (current) drug therapy
CPT/HCPCS: 36415; 70450-TC; 71250-TC; 71260-TC; 80048-TC; 80053-TC; 80076-TC; 80177; 80202-TC; 81001; 82140-TC; 82550-TC; 82607-TC; 82728-TC; 82784; 83540-TC; 83605-TC; 83735-TC; 83880; 84100-TC; 84155; 84165; 84443-TC; 84484-TC; 84550-TC; 85025-TC; 85730-TC; 86334; 87040-TC; 87081-TC; 87086-TC; 87186-TC; 97116-TC; 97530-TC; C9113; C9803; G0378; J0692; J0696; J1650; J3370; J3475; J7030; J7050; J7060